=== PATIENT | female | born 1965 | race Caucasian/White ===

== ENCOUNTER 2017-07-02 16:54 | Emergency (ER) | END 2017-07-02 17:00 | disposition home or self-care (01) ==

== ENCOUNTER 2017-07-08 21:48 | Emergency (ER) | END 2017-07-09 02:40 | disposition home or self-care (01) ==

== ENCOUNTER 2017-08-26 21:42 | Emergency (ER) | END 2017-08-27 00:54 | disposition home or self-care (01) ==

== ENCOUNTER 2018-04-04 09:05 | Emergency (ER) | END 2018-04-04 10:16 | disposition home or self-care (01) ==